=== PATIENT | male | born 1980 | race African-American/Black ===

== ENCOUNTER 2022-04-15 07:16 | Outpatient (REF) | payer SELFPAY ==
[2022-04-15 07:58] LABS: COVID-19 Test Negative (Negative); IDNOW Serial# 16C4AD1C
== END 2022-04-15 07:17 | disposition home or self-care (01) ==
LOC: HO.LAB 07:16
PROVIDERS: Visit Provider Internal Medicine
DX: Z20.822 Contact with and (suspected) exposure to COVID-19 (principal)
CPT/HCPCS: 87635; C9803